=== PATIENT | male | born 1995 | race African-American/Black ===

== ENCOUNTER 2017-12-12 15:53 | Emergency (ER) | payer MEDICAID ==
[~2017-12-12] VITALS: Ht 162.6 cm; Wt 51.9 kg
[2017-12-12 16:05] VITALS: BP 115/80
== END 2017-12-12 20:00 | disposition left against medical advice (07) ==
LOC: ER 15:53
DX: R11.2 Nausea with vomiting, unspecified (principal); Z53.21 Procedure and treatment not carried out due to patient leaving prior to being seen by health care provider

== ENCOUNTER 2019-08-01 07:16 | Emergency (ER) | payer MEDICAID ==
[~2019-08-01] VITALS: Ht 162.6 cm; Wt 65.7 kg
[2019-08-01] MEDS ORDERED: OXYCODONE HCL/ACETAMINOPHEN 5/325MG TABLET PO ONE (07:45)
[2019-08-01 08:29] VITALS: BP 128/87
== END 2019-08-01 08:32 | disposition home or self-care (01) ==
LOC: ER 07:16
DX: S62.304A Unspecified fracture of fourth metacarpal bone, right hand, initial encounter for closed fracture (principal); J45.909 Unspecified asthma, uncomplicated; F12.10 Cannabis abuse, uncomplicated; X58.XXXA Exposure to other specified factors, initial encounter; Y93.89 Activity, other specified; Y92.89 Other specified places as the place of occurrence of the external cause; Y99.8 Other external cause status
CPT/HCPCS: 29125; 73100; 73120; 99284